=== PATIENT | female | born 1975 | race Caucasian/White ===

== ENCOUNTER 2017-06-16 07:29 | Emergency (ER) | payer BC ==
[2017-06-16 07:49] VITALS: BP 146/89
--- NOTE | 2017-06-16 08:02 | UC ---
Upper Extremity HPI - HPI Summary HPI Summary: C/O left elbow pain x 2 days worse with extension. No known trauma. No numbness or weakness. Has noticed some popping. - History of Current Complaint Chief Complaint: UCUpperExtremity Stated Complaint: SINUSES/CONGESTION, LFT ARM COMPLAINT Time Seen by Provider: 06/16/17 07:55 Hx Obtained From: Patient Hx Last Menstrual Period: 06/01/17 ?: No Onset/Duration: Sudden Onset, Lasting Days - 2, Still Present Severity Currently: Mild Pain Intensity: 3 Location Of Pain: Is Discrete @ - left medial elbow. Character: Aching Aggravating Factor(s): Movement, Extension Alleviating Factor(s): OTC Meds, Rest Associated Signs And Symptoms: Positive: Swelling - ???. Negative: Redness, Bruising, Fever, Weakness, Numbness/Tingling Related History: Dominant Hand Right - Risk Factors Non-Orthopedic Risk Factor: Negative DVT Risk Factors: Smoking - Allergies/Home Medications Allergies/Adverse Reactions: Allergies Allergy/AdvReac Type Severity Reaction Status Date / Time sulfamethoxazole Allergy Headache Verified 06/16/17 07:42 [From Bactrim] trimethoprim [From Bactrim] Allergy Headache Verified 06/16/17 07:42 seafood Allergy Severe Hives Uncoded 04/05/15 13:02 Home Medications: Home Medications Ibuprofen TAB* [Advil TAB*] 400 mg PO Q6H PRN 06/16/17 [History Confirmed ] PMH/Surg Hx/FS Hx/Imm Hx Previously Healthy: Yes - Surgical History Surgical History: Yes Surgery Procedure, Year, and Place: LEEP. L thumb cyst removal - Family History Known Family History: Positive: Cardiac Disease, Hypertension, Diabetes - Social History Occupation: Employed Full-time Lives: With Family Alcohol Use: Rare Substance Use Type: None Smoking Status (MU): Heavy Every Day Tobacco Smoker Type: Cigarettes Amount Used/How Often: 1/2P-1PPD Length of Time of Smoking/Using Tobacco: 20+ years Have You Smoked in the Last Year: Yes - Immunization History Most Recent Influenza Vaccination: none Review of Systems ENT: Sinus Congestion, Sinus Pain/Tenderness Respiratory: Cough Musculoskeletal: Arthralgia Is Patient Immunocompromised?: No All Other Systems Reviewed And Are Negative: Yes Physical Exam Triage Information Reviewed: Yes Appearance: Well-Appearing, No Pain Distress, Well-Nourished Vital Signs: Initial Vital Signs Temp 98.6 F 06/16/17 07:44 Pulse 83 06/16/17 07:44 Resp 16 06/16/17 07:44 BP 146/89 06/16/17 07:44 Pulse Ox 100 06/16/17 07:44 Vital Signs Reviewed: Yes Eyes: Positive: Conjunctiva Clear ENT: Positive: Pharynx normal, Nasal congestion, TMs normal Neck exam: Normal Respiratory: Positive: Wheezing - mild expiratory wheeze Cardiovascular Exam: Normal Musculoskeletal Exam: Normal Neurological Exam: Normal Psychological Exam: Normal Skin Exam: Normal Upper Extremity Course/Dx - Differential Dx/Diagnosis Differential Diagnosis/HQI/PQRI: Fracture (Closed), Strain, Sprain Provider Diagnoses: Strain left elbow. URI. Acute bronchospasm Discharge - Discharge Plan Condition: Stable Disposition: HOME Prescriptions: predniSONE TAB* [Deltasone TAB*] 20 mg PO DAILY #18 tab Patient Education Materials: Muscle Strain (ED), Bronchospasm (ED), Prednisone (By mouth) Referrals: Ernesto Coker MD [Primary Care Provider] - Additional Instructions: Smoking Cessation Tricks. 1. Cut down by 1 cigarette per day every 2-3 days. Write the number of smokes for that day on the calendar. 2. Identify triggers to smoking: after meals, on the phone, in the car, with coffee, on breaks at work, etc. 3. Formulate a plan with a behavior to replace the smoking. Fireballs in the car , doodle pad on the phone, flavored creamer for the coffee, go for a walk after a meal or on break at work. 4. For stress smokes do deep breathing relaxation. Breath deep in through the nose hold the breath in for a few seconds then breath out slowly through the mouth.
== END 2017-06-16 08:23 | disposition home or self-care (01) ==
LOC: UCCORT 07:29
DX: S53.402A Unspecified sprain of left elbow, initial encounter (principal); X58.XXXA Exposure to other specified factors, initial encounter; Y93.9 Activity, unspecified; Y92.9 Unspecified place or not applicable; J06.9 Acute upper respiratory infection, unspecified; J98.01 Acute bronchospasm; Z88.1 Allergy status to other antibiotic agents; F17.210 Nicotine dependence, cigarettes, uncomplicated
CPT/HCPCS: 99212; G0463

== ENCOUNTER 2019-01-22 08:58 | Emergency (ER) | payer BC ==
[2019-01-22 11:10] VITALS: BP 148/83
--- NOTE | 2019-01-22 13:07 | UC ---
Lower Extremity/Ankle HPI - HPI Summary HPI Summary: ABOUT A WEEK AGO PATIENT NOTICED RIGHT CALF PAIN. SYMPTOMS HAVE WAXED AND WANED SINCE THEN. LAST NIGHT SHE PIVOTED AND WHEN SHE TOOK A STEP SHE FELT A SUDDEN POP AND INCREASED PAIN. FEELS HER CALF IS A BIT SWOLLEN. NO NUMBNESS OR TINGLING. NO CHEST PAIN OR SHORTNESS OF BREATH. - History of Current Complaint Chief Complaint: UCLowerExtremity Stated Complaint: LEG COMPLAINT Time Seen by Provider: 01/22/19 10:52 Hx Obtained From: Patient Hx Last Menstrual Period: 01/18/19 Onset/Duration: Sudden Onset, Lasting Days, Still Present Severity Initially: Moderate Severity Currently: Moderate Pain Intensity: 0 Pain Scale Used: 0-10 Numeric Aggravating Factor(s): Standing, Ambulation Alleviating Factor(s): Rest Able to Bear Weight: Yes - Allergies/Home Medications Allergies/Adverse Reactions: Allergies Allergy/AdvReac Type Severity Reaction Status Date / Time shellfish derived Allergy Hives Verified 01/22/19 09:15 sulfamethoxazole Allergy Headache Verified 01/22/19 09:14 [From Bactrim] trimethoprim [From Bactrim] Allergy Headache Verified 01/22/19 09:14 seafood Allergy Severe Hives Uncoded 01/22/19 09:14 Home Medications: Home Medications DOXYcycline CAP(*) [DOXYcycline 100MG CAP(*)] 1 tab PO DAILY PRN 01/22/19 [ History Confirmed 01/22/19] PMH/Surg Hx/FS Hx/Imm Hx - Additional Past Medical History Additional PMH: ROSACEA - Surgical History Surgical History: Yes Surgery Procedure, Year, and Place: LEEP. L thumb cyst removal - Family History Known Family History: Positive: Cardiac Disease, Hypertension, Diabetes - Social History Alcohol Use: Rare Substance Use Type: None Smoking Status (MU): Heavy Every Day Tobacco Smoker Type: Cigarettes Amount Used/How Often: 1/2P-1PPD Length of Time of Smoking/Using Tobacco: 20+ years Have You Smoked in the Last Year: Yes Household Exposure Type: Cigarettes - Immunization History Most Recent Influenza Vaccination: none Review of Systems All Other Systems Reviewed And Are Negative: Yes Constitutional: Positive: Negative Skin: Positive: Negative Respiratory: Positive: Negative Cardiovascular: Positive: Negative Gastrointestinal: Positive: Negative Musculoskeletal: Positive: Calf Tenderness, Myalgia Physical Exam Triage Information Reviewed: Yes Appearance: Well-Appearing, No Pain Distress, Well-Nourished Vital Signs: Initial Vital Signs Temp 98.8 F 01/22/19 09:08 Pulse 80 01/22/19 09:08 Resp 18 01/22/19 09:08 BP 150/98 01/22/19 09:08 Pulse Ox 100 01/22/19 09:08 Vital Signs Reviewed: Yes Eyes: Positive: Conjunctiva Clear ENT: Positive: Hearing grossly normal Neck: Positive: Supple Respiratory: Positive: No respiratory distress, No accessory muscle use Cardiovascular: Positive: Pulses Normal Abdomen Description: Positive: Soft Musculoskeletal: Positive: ROM Intact, No Edema, Other: Neurological: Positive: Alert, Muscle Tone Normal Psychological: Positive: Age Appropriate Behavior Skin: Negative: Rashes Diagnostics - Radiology RLE US Radiology Interpretation Completed By: Radiologist Summary of Radiographic Findings: SOFT TISSUES: Unremarkable. NO RIGHT LOWER EXTREMITY DEEP VEIN THROMBOSIS Lower Extremity Course/Dx - Course Course Of Treatment: ULTRASOUND NEGATIVE FOR DVT AND SOFT TISSUE INJURY. PAIN LIKELY DUE TO MUSCLE/ TENDON STRAIN. CONSERVATIVE MANAGEMENT WITH REST, OTC MEDICATIONS, HEAT, MASSAGE. FOLLOW-UP IF NEEDED. - Differential Dx/Diagnosis Provider Diagnosis: Strain of gastrocnemius tendon of right lower extremity Discharge ED - Sign-Out/Discharge Documenting (check all that apply): Patient Departure All imaging exams completed and their final reports reviewed: Yes - Discharge Plan Condition: Stable Disposition: HOME Patient Education Materials: Muscle Strain (ED), Leg Pain (ED) Referrals: Ernesto Coker MD [Primary Care Provider] - 2 Weeks Additional Instructions: ULTRASOUND TODAY DID NOT SHOW ANY BLOOD CLOT OR SOFT TISSUE INJURY. YOUR PAIN IS LIKELY DUE TO A MUSCLE STRAIN. REST, STRETCH, HEAT, MASSAGE, OTC MEDICATIONS NEEDED. FOLLOW-UP WITH YOUR PCP IF HER SYMPTOMS ARE NOT IMPROVING EXPECTED OVER THE NEXT COUPLE OF WEEKS. - Billing Disposition and Condition Condition: STABLE Disposition: Home
== END 2019-01-22 13:07 | disposition home or self-care (01) ==
LOC: UCEAST 08:58
DX: S86.811A Strain of other muscle(s) and tendon(s) at lower leg level, right leg, initial encounter (principal); F17.210 Nicotine dependence, cigarettes, uncomplicated; Z91.013 Allergy to seafood; Z88.1 Allergy status to other antibiotic agents; Z88.2 Allergy status to sulfonamides; X50.0XXA Overexertion from strenuous movement or load, initial encounter; Y92.9 Unspecified place or not applicable
CPT/HCPCS: 99211; G0463